=== PATIENT | male | born 1970 | race African-American/Black ===

== ENCOUNTER 2016-07-28 17:29 | Inpatient (IN) | payer MEDICAID, SELFPAY ==
[~2016-07-28] VITALS: Ht 182.9 cm; Wt 137.7 kg
[2016-07-28] MEDS ORDERED: LABETALOL 5MG/ML, 20ML ONE (18:16)
[2016-07-28] MEDS ORDERED: SODIUM CHLORIDE FLUSH 10ML SYR IVF ONE (18:30)
[2016-07-28] MEDS ORDERED: LABETALOL 5MG/ML, 20ML IVPush ONE ×2 (18:30→20:00)
[2016-07-28 18:41] LABS: BLOOD UREA NITROGEN 16 mg/dL (7-18)
[2016-07-28 18:52] LABS: IS PT STATUS REG ER OR PRE ER? YES
[2016-07-28] MEDS ORDERED: SODIUM CHLORIDE FLUSH 10ML SYR IVF PRN (22:30)
[2016-07-28] MEDS ORDERED: DOCUSATE 100 MG CAPSULE PO PRN (23:30)
[2016-07-28] MEDS ORDERED: ACETAMINOPHEN 325 MG TABLET PO PRN (23:30)
[2016-07-28] MEDS ORDERED: POLYETHYLENE GLYCOL 17 GM PACKET PO PRN (23:30)
[2016-07-28] MEDS ORDERED: TRAZODONE 50MG TABLET PO PRN (23:30)
[2016-07-28] MEDS ORDERED: BISACODYL 10 MG SUPP PR PRN (23:30)
[2016-07-28 23:45] VITALS: BP 191/140
[2016-07-29] MEDS: LABETALOL 5MG/ML, 20ML IVPush PRN ×3 (00:27→17:37)
[2016-07-29 00:56] VITALS: BP 170/114
[2016-07-29] MEDS: AMLODIPINE 5 MG TABLET PO SCH ×3 (00:57→21:26)
[2016-07-29] MEDS: ENOXAPARIN 40 MG/0.4 ML SQ SCH (00:58)
[2016-07-29] MEDS: SODIUM CHLORIDE 0.9% 1,000 ML IV SCH ×2 (00:58→11:21)
[2016-07-29 03:36] VITALS: BP 187/119
[2016-07-29 06:08] LABS: ASPARTATE AMINO TRANSFERASE 28 U/L (15-37); BLOOD UREA NITROGEN 16 mg/dL (7-18)
[2016-07-29 07:41] VITALS: BP 164/104
[2016-07-29] MEDS: metFORMIN 500 MG TABLET PO SCH ×2 (07:43→17:30)
[2016-07-29] MEDS ORDERED: POTASSIUM CHLORIDE 20 MEQ TAB.ER.PRT PO ONE (11:30)
[2016-07-29] MEDS: LISINOPRIL 10 MG TABLET PO SCH (12:57)
[2016-07-29] MEDS: INSULIN ASPART 100 UNITS/ML, PEN SQ-INSULIN SCH ×3 (12:58→21:30)
[2016-07-29 13:53] VITALS: BP 170/110
[2016-07-29 17:33] VITALS: BP 188/108
[2016-07-29 19:11] VITALS: BP 183/78
[2016-07-29] MEDS ORDERED: ATORVASTATIN 20 MG TABLET PO SCH (21:00)
[2016-07-30] MEDS: ENOXAPARIN 40 MG/0.4 ML SQ SCH (00:57)
[2016-07-30 01:53] VITALS: BP 162/99
[2016-07-30] MEDS ORDERED: ASPIRIN 81 MG TABLET EC PO SCH (06:00)
[2016-07-30 06:15] LABS: BLOOD UREA NITROGEN 9 mg/dL (7-18)
[2016-07-30 07:32] VITALS: BP 169/102
[2016-07-30 09:15] VITALS: BP 161/98
[2016-07-30] MEDS: INSULIN ASPART 100 UNITS/ML, PEN SQ-INSULIN SCH ×3 (09:20→16:00)
[2016-07-30] MEDS: AMLODIPINE 5 MG TABLET PO SCH (09:21)
[2016-07-30] MEDS: metFORMIN 500 MG TABLET PO SCH (09:21)
[2016-07-30] MEDS: LISINOPRIL 10 MG TABLET PO SCH (09:21)
[2016-07-30 13:48] VITALS: BP 164/99
[2016-07-30] MEDS ORDERED: CARV12.543 PO (15:11)
[2016-07-30] MEDS ORDERED: LISI-167 PO (15:11)
[2016-07-30] MEDS ORDERED: ASPI-621 PO (15:11)
[2016-07-30] MEDS ORDERED: ATOR20TA9 PO (15:11)
[2016-07-30] MEDS ORDERED: METF500T PO (15:11)
[2016-07-30] MEDS ORDERED: POTASSIUM CHLORIDE 20 MEQ TAB.ER.PRT PO SCH (17:00)
[2016-07-30] MEDS ORDERED: CARVEDILOL 12.5 MG TABLET PO SCH (18:00)
[2016-07-30] MEDS ORDERED: LISINOPRIL 10 MG TABLET PO SCH (21:00)
== END 2016-07-30 17:30 | disposition home or self-care (01) | DRG 305 ==
LOC: ED 22:00 → EDIP 22:12 → 5SO 23:28 → DCLOUNGE 07-30 16:59
PROVIDERS: ADMIT Internal Medicine; ATTEND Internal Medicine
DX: I16.1 Hypertensive emergency (principal); I43 Cardiomyopathy in diseases classified elsewhere; E11.65 Type 2 diabetes mellitus with hyperglycemia; I11.9 Hypertensive heart disease without heart failure; Z82.49 Family history of ischemic heart disease and other diseases of the circulatory system; Z83.3 Family history of diabetes mellitus; Z87.891 Personal history of nicotine dependence; E87.6 Hypokalemia; E78.5 Hyperlipidemia, unspecified; I34.0 Nonrheumatic mitral (valve) insufficiency; D63.8 Anemia in other chronic diseases classified elsewhere
CPT/HCPCS: 36415; 70450; 71010; 80048; 80053; 80061; 82040; 82962; 83036; 83735; 83880; 84100; 84439; 84443; 84484; 85025; 93005; 93306; 96374; 96375; J1650; J1815; J7030

== ENCOUNTER 2019-07-02 23:25 | Emergency (ER) | payer MEDICAID ==
[~2019-07-02] VITALS: Ht 182.9 cm; Wt 96.5 kg
[~2019-07-02 23:25] MED LIST: AMLO5TAB10 PO; ASPI81TA45 PO; ATOR20TA37 PO; CARV12.543 PO; LISI-167 PO; METF500T PO
[2019-07-02 23:32] VITALS: BP 128/88
--- NOTE | 2019-07-03 00:37 | NUR ---
pt refusing blood draws at this time
== END 2019-07-03 01:39 ==
LOC: ED 07-03 00:59
DX: L03.116 Cellulitis of left lower limb (principal); I10 Essential (primary) hypertension; Z72.9 Problem related to lifestyle, unspecified; Z87.891 Personal history of nicotine dependence
CPT/HCPCS: 99283